=== PATIENT | female | born 1975 | race Caucasian/White ===

== ENCOUNTER → 2019-09-26 | Outpatient (CLI) | payer BC ==
[~2019-09-26] MED LIST: ALEVE 220MG220 MG PO; ANTIBIOTIC; MIGRAINE MED; MOTRIN 800800 MG/TAB PO; PHENERGAN 25 TA25 MG PO; PREDNISONE20 MG PO; ZYRTEC10 MG PO
== END ==
LOC: DIA.ED 10:04
DX: E11.9 Type 2 diabetes mellitus without complications (principal); E78.5 Hyperlipidemia, unspecified; I10 Essential (primary) hypertension
CPT/HCPCS: G0108

== ENCOUNTER 2023-11-15 10:35 | Day surgery (SDC) | payer BC ==
[2023-11-15] VITALS (9 sets, daily range): BP systolic 116–155; BP diastolic 57–91; PULSE 72–92; TEMP 97.1–98
[~2023-11-15] VITALS: Ht 160 cm; Wt 131.7 kg
[~2023-11-15 10:35] MED LIST changes: +LR 1,000 ML IV SCH
[2023-11-15] MEDS ORDERED: PRINIVIL20 MG PO (11:19)
[2023-11-15] MEDS ORDERED: INSULIN AS100 UNIT/3 SQ (11:21)
[2023-11-15] MEDS ORDERED: INSULIN GL100 UNIT/2 SQ (11:22)
[2023-11-15] MEDS ORDERED: Rocuronium 50 MG/5 ML Multi-Dose VIAL ONE (11:23)
[2023-11-15] MEDS ORDERED: PRILOSEC 20MG20 MG PO (11:23)
[2023-11-15] MEDS ORDERED: LIPITOR20 MG PO (11:23)
[2023-11-15] MEDS ORDERED: fentaNYL 50 MCG/ML 5 ML VIAL ONE (11:23)
[2023-11-15] MEDS ORDERED: Lidocaine PF 2% (20 MG/ML) 5 ML VIAL ONE (11:24)
[2023-11-15] MEDS ORDERED: NS 10 ML IV ONE (11:24)
[2023-11-15] MEDS ORDERED: Ketorolac 30 MG/ML VIAL ONE (11:24)
[2023-11-15] MEDS ORDERED: dexAMETHasone 10 MG/ML VIAL ONE (11:24)
[2023-11-15] MEDS ORDERED: Ondansetron 4 MG/2 ML VIAL ONE (11:24)
[2023-11-15] MEDS ORDERED: OMNICEF 300MG300 MG PO (11:24)
[2023-11-15] MEDS ORDERED: Glycopyrrolate 0.2 MG/ML 1 ML VIAL ONE (11:24)
[2023-11-15] MEDS ORDERED: Ondansetron 4 MG/2 ML VIAL IV PRN ×2 (14:00→14:15)
[2023-11-15] MEDS ORDERED: Morphine 4 MG/ML VIAL IV PRN (14:00)
[2023-11-15] MEDS ORDERED: ULTRAM 50MG TAB50 MG PO (14:07)
[2023-11-15] MEDS ORDERED: hydrALAZINE 20 MG/ML 1 ML VIAL IV PRN (14:15)
[2023-11-15] MEDS ORDERED: traMADol 50 MG TAB PO PRN (14:15)
[2023-11-15] MEDS ORDERED: fentaNYL 50 MCG/ML 1 ML SYRINGE/VIAL [PACU/SDC ONLY] IV PRN (14:15)
[2023-11-15] MEDS ORDERED: droPERidol 2.5 MG/ML 2 ML VIAL IV PRN (14:15)
[2023-11-15] MEDS ORDERED: HYDROmorphone 1 MG/1 ML SYRINGE [PACU/SDC ONLY] IV PRN (14:15)
--- NOTE | 2023-11-15 17:15 | NUR ---
1510 RETURNS TO ROOM 2 PER CART. PATIENT DROWSY, AROUSES SPONTANEOUSLY. RESP UNLABORED. HOB ELEVATED 30 DEGREES. VITAL SIGNS OBTAINED. ABD SOFT. BANDAID X 3 SITES CLEAN DRY AND INTACT. REPORTS MILD DISCOMFORT. DENIES NEED FOR PAIN MED. PATIENT STATES IS WARM. BLANKETS OFF, COOL WASH CLOTHE TO FOREHEAD. CALL LIGHT AT SIDE 1525 DOZING. RESP UNLABORED. IN ROOM 1540 AROUSES EASILY TO VERBAL STIMULI. HO ELEVATED 45 DEGREES. TAKES SMALL DRINKS OF COLD WATER. PATIENT ADMITS WO DECREASED FEELING OF WARMTH 1555 LEAVES TO ANGER CONTROL COUNSELOR PRESCRIPTIONS. PATIENT ENCOURAGED TO REST. CALL LIGHT AT SIDE 1610 RESTS WITH EYES CLOSED 1625 AROUSES EASILY. ABD REMAINS SOFT. BANDAIDS CLEAN DRY AND INTACT 1640 LESS DROWSY, HOB ELEVATED 60 DEGREES. TOLERATES PO WATER AND JUICE WITHOUT NAUSEA 1650 DISCHARGE INSTRUCTIONS REVIEWED. PATIENT AND VERBALIZE UNDERSTANDING. COPY PROVIDED IN DISCHARGE FOLDER 1705 SITS ON EDGE OF CART. DRESSES WITH ASSIST OF .
== END 2023-11-15 17:15 | disposition home or self-care (01) ==
LOC: SDCO 10:35
DX: K81.1 Chronic cholecystitis (principal); K21.9 Gastro-esophageal reflux disease without esophagitis; E66.01 Morbid (severe) obesity due to excess calories; Z68.43 Body mass index [BMI] 50.0-59.9, adult; Z79.899 Other long term (current) drug therapy
CPT/HCPCS: J0690; J1100; J1170; J1885; J2405; J2704; J3010; J7120